=== PATIENT | male | born 1965 | race American Indian/Alaskan Native ===

== ENCOUNTER 2016-12-11 09:46 | Outpatient (CLI) | payer OTHER ==
--- NOTE | 2016-12-11 11:05 | XRay Report ---
CHEST 2 VIEWS: HISTORY: Positive PPD. FINDINGS: Normal cardiomediastinal silhouette. Trachea is midline. No consolidation, pneumothorax or pleural effusion. IMPRESSION: No acute cardiopulmonary findings.
== END 2016-12-11 09:47 | disposition home or self-care (01) ==
LOC: XRAY 09:46
PROVIDERS: ATTEND Internal Medicine
DX: R76.11 Nonspecific reaction to tuberculin skin test without active tuberculosis (principal); R51 Headache
CPT/HCPCS: 71020

== ENCOUNTER 2018-12-13 13:03 | Day surgery (SDC) | payer OTHER ==
--- NOTE | 2018-12-13 13:56 | Anesthesia Consultation ---
Anesthesia Consult and Med Hx Date of service: 12/13/18 - Airway Anesthetic Teeth Evaluation: Good ROM Head & Neck: Adequate Mental/Hyoid Distance: Adequate Mallampati Class: Class II Intubation Access Assessment: Probably Good - Pulmonary Exam CTA: Yes - Cardiac Exam Cardiac Exam: RRR - Pre-Operative Health Status ASA Pre-Surgery Classification: ASA1, ASA2 Proposed Anesthetic Plan: MAC - Pulmonary Hx Smoking: No Hx Respiratory Symptoms: No - Cardiovascular System Hx Hypertension: No Hx Coronary Artery Disease: No - Central Nervous System Hx Neuromuscular Disorder: No - Gastrointestinal Hx Ulcer: Yes - Endocrine Hx Renal Disease: No Hx End Stage Renal Disease: No Hx Liver Disease: No - Hematic Hx Anemia: No Hx Sickle Cell Disease: No - Other Systems Hx Alcohol Use: No - Additional Comments Anesthesia Medical History Comments: No GAC, No FHAC
[2018-12-13] MEDS ORDERED: NACL 0.9% 1000 ML 1,000 ML IV SCH (14:00)
--- NOTE | 2018-12-13 14:52 | Anesthesia Day of Surgery ---
Anesthesia Day of Surgery - Day of Surgery Patient Examined: Yes Patient H&P Reviewed: Yes Patient is NPO: Yes
[2018-12-13] MEDS ORDERED: DIPRIVAN 10 MG/ML IV ONE ×2 (15:42)
[2018-12-13] MEDS ORDERED: WATER FOR IRRIG STERILE IR ONE (15:44)
[2018-12-13] MEDS ORDERED: WATER FOR IRRIG STERILE ONE (16:02)
--- NOTE | 2018-12-13 16:33 | Operative Report ---
Operative Report Operative Report: Date of procedure: 12/13/2018 Procedure: Colonoscopy with snare polypectomy. Attending physician: Bandar Wood MD Seasoning Mixer: Bandar Wood MD Indication: Patient is a 53-year-old male who presents for colonoscopy for colorectal cancer screening. He has a history of rectal bleeding and rectal pain. A colonoscopy serves to evaluate patients symptoms so that treatment may be directed based on the findings. Consent: Informed consent was obtained after advising the patient and family regarding nature of this procedure, its indications, potential benefits as well as possible complications including but not limited to bleeding perforation and adverse reaction to medication, infection as well as other cardiopulmonary complications. An informed written and verbal consent was then obtained after due opportunity was provided for questions and answers. Monitoring: Patient was monitored continuously with pulse oximetry and electrocardiographic recordings as well as blood pressure recordings. Vital signs remained stable throughout this procedure with no untoward events. Preoperative assessment: Patient was assessed immediately prior to this procedure for capacity to tolerate monitored anesthesia care and moderate sedation as well as general anesthesia. Patient's ASA classification is 2, Mallampati class is 2, Hyomental distance is 3. Instrument: [employer] videocolonoscope. Medications: Propofol given intravenously in divided doses. For details please refer to anesthesia records. Description of procedure: Patient was placed in the left lateral decubitus position after achieving sedation, a digital rectal examination was performed following which the colonoscope was introduced into the anal verge and advanced to the cecum which was identified by the cecal valve, the appendiceal orifice, as well as by the cecal strap and direct transillumination. The colonoscope was subsequently withdrawn with careful inspection of all mucosal surfaces. Patient tolerated this procedure well and was subsequently taken to the recovery room. The following findings were noted. Findings: The preparation was fair. The colon was moderately tortuous. The cecum was normal. The ascending colon was normal. The transverse colon was normal. The proximal descending colon was normal. In the mid descending colon, patient had a pedunculated 1.5 cm polyp. This was removed by snare electrocautery and retrieved. A Hemoclip was placed over the polyp base. The sigmoid colon was normal. The rectum was normal however on the retroflex examination at the anal verge patient had prominent internal hemorrhoids. This was friable and bled easily on contact.. Patient tolerated the procedure well with no untoward events. Impression: Descending colon polyp status post snare polypectomy Prominent friable Internal hemorrhoids Plan: Follow-up pathology report Daily sitz baths. High-fiber diet. Anusol HC suppositories per rectum every night as needed. Patient to use stool softeners as needed. MiraLAX 17 g in 8 ounce glass of water as needed Patient is scheduled for further outpatient follow-up. Patient would benefit from hemorrhoidal band ligation.
--- NOTE | 2018-12-13 16:34 | Discharge Summary ---
Short Stay Discharge Plan Weight Bearing Status: Weight Bear as Tolerated Diet: regular Additional Instructions: Post Sedation D/C Instructions When you return home you may resume your regular diet unless otherwise directed. -Go directly home from the hospital and rest quietly. You may resume normal activities tomorrow. -Do NOT drive, return to work, operate any machinery or make any important personal or business decisions today. -Do NOT drink any alcohol or take nerve or sleeping drugs. They add to the effects of the medicine still present in your body. NO NSAIDS OR ASPIRIN 2-[address] HENRIQUEZ'S OFFICE 1-2 WKS FOR BIOPSY REPORT Follow up with: SHELDON PADRON [Primary Care Provider] - 7 Days
[2018-12-13 16:52] VITALS: BP 99/68
--- NOTE | 2018-12-13 16:52 | Post Anesthesia Evaluation ---
- Post Anesthesia Evaluation Patient Participated: Yes Airway Patent: Yes Stable Respiratory Function: Yes Temp > 96.8F: Yes Pain Manageable: Yes Adequeate Hydration: Yes Anesthesia Complications: No
== END 2018-12-13 13:04 | disposition home or self-care (01) ==
LOC: GIO 13:03
PROVIDERS: ATTEND Internal Medicine Gastroenterology
DX: D12.4 Benign neoplasm of descending colon (principal); K63.5 Polyp of colon; K64.8 Other hemorrhoids; K21.9 Gastro-esophageal reflux disease without esophagitis; Z79.899 Other long term (current) drug therapy; Z98.890 Other specified postprocedural states
CPT/HCPCS: 45385; 88305; J2704; J7030

== ENCOUNTER 2018-12-27 09:25 | Day surgery (SDC) | payer OTHER ==
[2018-12-27] MEDS ORDERED: NACL 0.9% 1000 ML 1,000 ML IV SCH (10:00)
[2018-12-27] MEDS ORDERED: DIPRIVAN 10 MG/ML IV ONE ×2 (10:24)
--- NOTE | 2018-12-27 10:38 | Anesthesia Consultation ---
Anesthesia Consult and Med Hx Date of service: 12/27/18 - Airway Anesthetic Teeth Evaluation: Good ROM Head & Neck: Adequate Mental/Hyoid Distance: Adequate Mallampati Class: Class I Intubation Access Assessment: Good - Pulmonary Exam CTA: Yes - Cardiac Exam Cardiac Exam: RRR - Pre-Operative Health Status ASA Pre-Surgery Classification: ASA1, ASA2 Proposed Anesthetic Plan: MAC - Pulmonary Hx Smoking: No Hx Respiratory Symptoms: No - Cardiovascular System Hx Hypertension: No Hx Coronary Artery Disease: No - Central Nervous System Hx Neuromuscular Disorder: No - Gastrointestinal Hx Ulcer: Yes Hx Gastroesophageal Reflux Disease: Yes - Endocrine Hx Renal Disease: No Hx End Stage Renal Disease: No Hx Liver Disease: No - Hematic Hx Anemia: No Hx Sickle Cell Disease: No - Other Systems Hx Alcohol Use: No Hx Obesity: No - Additional Comments Anesthesia Medical History Comments: No GAC, No FHAC
--- NOTE | 2018-12-27 12:40 | Operative Report ---
Operative Report Operative Report: Date: 12/27/2018 Operative Report: Date of procedure: 12/27/2018 Procedure: Esophagogastroduodenoscopy with multiple mucosal biopsies. Attending physician: Bandar Wood MD Sales Marketing Manager: Bandar Wood MD Indication: Patient is a 53 -year-old male who presented with a history of recurrent epigastric pain, heartburn and indigestion and early satiety. An upper endoscopy is done to assess patient, so that treatment may be directed based on the findings. Consent: Informed consent was obtained after advising the patient and family regarding nature of this procedure, its indications, potential benefits as well as possible complications including but not limited to bleeding perforation and adverse reaction to medication, infection as well as other cardiopulmonary complications. An informed written and verbal consent was then obtained after due opportunity was provided for questions and answers. Monitoring: Patient was monitored continuously with pulse oximetry and electrocardiographic recordings as well as blood pressure recordings. Vital signs remained stable throughout this procedure with no untoward events. Preoperative assessment: Patient was assessed immediately prior to this procedure for capacity to tolerate monitored anesthesia care and moderate sedation as well as general anesthesia. Patient's ASA classification is 2, Mallampati class is 2, Hyomental distance is 3. Instrument: [employer] video endoscope Medications: Propofol given intravenously in divided doses. For details please refer to anesthesia records. Description of procedure: Patient was placed in the left lateral decubitus position after achieving sedation, the endoscope was introduced into the esophagus under direct vision. It was then advanced beyond the esophagus into the stomach and then beyond the stomach into the duodenum and to the second portion of the duodenum. It was subsequently withdrawn with careful inspection of all mucosal surfaces with the following findings. Findings: Patient has an irregular Z line at 42 cm. There was erythema in the gastric antrum. Biopsies of the antrum were obtained for histopathology. Patient had an ulcer 1 x 0.5 cm with surrounding multiple erosions and irregular edges seen in the duodenal bulb. Biopsies of the duodenal bulb were obtained for histopathology The rest duodenum was normal to second portion. Impression: Irregular Z line. Gastric antral erythema Duodenal bulb ulcer. Duodenitis. Plan: Continue treatment with proton pump inhibitors. Follow pathology report. Direct additional treatment based on the pathology report. Patient will be observed clinically. Additional recommendations will be made follow-up.
--- NOTE | 2018-12-27 12:40 | Discharge Summary ---
Short Stay Discharge Plan Activity: advance as tolerated Weight Bearing Status: Weight Bear as Tolerated Diet: regular Follow up with: SHELDON PADRON [Primary Care Provider] - 7 Days
[2018-12-27 13:07] VITALS: BP 113/78
--- NOTE | 2018-12-27 16:42 | History and Physical Report ---
History of Present Illness Date of examination: 12/27/18 Date of admission: 12/27/2018 Chief complaint: Epigastric pain, early satiety, indigestion and heartburn anorexia History of present illness: Patient ia s 53 year old male who presents for an upper endoascopy because of complaints of epigastric pain, early satiety, indigestion and heartburn anorexia Medications and Allergies Allergies Allergy/AdvReac Type Severity Reaction Status Date / Time LOBSTER Allergy Mild Vomiting Uncoded 12/27/18 09:48 Home Medications Medication Instructions Recorded Confirmed Last Taken Type Omeprazole 20 mg PO PRN PRN 12/13/18 12/27/18 12/21/18 History Active Meds: Active Medications Sodium Chloride (Nacl 0.9% 1000 Ml) 1,000 mls @ 50 mls/hr IV DIRECT RANAD Last Admin: 12/27/18 10:10 Dose: 50 mls/hr Documented by: Review of Systems All systems: negative Exam - Constitutional Vitals: Temp Pulse Resp BP Pulse Ox 97.8 F 80 15 113/78 99 12/27/18 12:30 12/27/18 13:06 12/27/18 13:12 12/27/18 13:06 12/27/18 13:12 General appearance: Present: no acute distress, well-nourished - EENT Eyes: Present: PERRL ENT: hearing intact, clear oral mucosa - Neck Neck: Present: supple, normal ROM - Respiratory Respiratory effort: normal Respiratory: bilateral: CTA - Cardiovascular Heart Sounds: Present: S1 & S2. Absent: rub, click - Extremities Extremities: pulses symmetrical, No edema Peripheral Pulses: within normal limits - Abdominal General gastrointestinal: Present: soft, non-tender, non-distended, normal bowel sounds Male genitourinary: Present: normal - Integumentary Integumentary: Present: clear, warm, dry - Musculoskeletal Musculoskeletal: gait normal, strength equal bilaterally - Psychiatric Psychiatric: appropriate mood/affect, intact judgment & insight - Neurologic Neurologic: CNII-XII intact, moves all extremities Assessment and Plan Epigastric pain, early satiety, indigestion and heartburn anorexia Plan Esophagogastroduodenoscopy
== END 2018-12-27 09:26 | disposition home or self-care (01) ==
LOC: GIO 09:25
PROVIDERS: ATTEND Internal Medicine Gastroenterology
DX: K29.50 Unspecified chronic gastritis without bleeding (principal); K21.9 Gastro-esophageal reflux disease without esophagitis; K29.80 Duodenitis without bleeding; K26.9 Duodenal ulcer, unspecified as acute or chronic, without hemorrhage or perforation; B96.81 Helicobacter pylori [H. pylori] as the cause of diseases classified elsewhere; Z88.8 Allergy status to other drugs, medicaments and biological substances; Z98.890 Other specified postprocedural states
CPT/HCPCS: 43239; 88305; 88342; J2704; J7030

== ENCOUNTER 2019-02-21 10:39 | Day surgery (SDC) | payer OTHER ==
--- NOTE | 2019-02-21 11:15 | Anesthesia Day of Surgery ---
Anesthesia Day of Surgery - Day of Surgery Patient Examined: Yes Patient H&P Reviewed: Yes Patient is NPO: Yes Beta Blockers: No
--- NOTE | 2019-02-21 11:16 | Anesthesia Consultation ---
Anesthesia Consult and Med Hx Date of service: 02/21/19 - Airway Anesthetic Teeth Evaluation: Good ROM Head & Neck: Adequate Mental/Hyoid Distance: Adequate Mallampati Class: Class II Intubation Access Assessment: Probably Good - Pulmonary Exam CTA: Yes - Cardiac Exam Cardiac Exam: No Murmur - Pre-Operative Health Status ASA Pre-Surgery Classification: ASA2 Proposed Anesthetic Plan: MAC - Pulmonary Hx Smoking: No Hx Asthma: No Hx Respiratory Symptoms: No SOB: No COPD: No Home Oxygen Therapy: No Hx Pneumonia: No Hx Sleep Apnea: No - Cardiovascular System Hx Hypertension: No Hx Coronary Artery Disease: No Hx Heart Attack/AMI: No Hx Angina: No Hx Percutaneous Transluminal Coronary Angioplasty (PTCA): No Hx Cardia Arrhythmia: No Hx Pacemaker: No Hx Internal Defibrillator: No Hx Valvular Heart Disease: No Hx Heart Murmur: No Hx Peripheral Vascular Disease: No - Central Nervous System Hx Neuromuscular Disorder: No Hx Seizures: No CVA: No Hx Psychiatric Problems: No - Gastrointestinal Hx Ulcer: Yes (DUODENAL ULCER) Hx Gastroesophageal Reflux Disease: Yes - Endocrine Hx Renal Disease: No Hx End Stage Renal Disease: No Hx Cirrhosis: No Hx Liver Disease: No Hx Insulin Dependent Diabetes: No Hx Non-Insulin Dependent Diabetes: No Hx Thyroid Disease: No Hx Hypothyroidism: No Hx Hyperthyroidism: No - Hematic Hx Anemia: No Hx Sickle Cell Disease: No - Other Systems Hx Alcohol Use: No Hx Obesity: No
[2019-02-21] MEDS ORDERED: WATER FOR IRRIG STERILE IR ONE ×2 (11:24→11:42)
[2019-02-21] MEDS ORDERED: WATER FOR IRRIG STERILE ONE (11:42)
[2019-02-21] MEDS ORDERED: NACL 0.9% 1000 ML 1,000 ML IV SCH (12:00)
[2019-02-21 12:20] VITALS: BP 100/72
--- NOTE | 2019-02-21 13:30 | Discharge Summary ---
Short Stay Discharge Plan Activity: advance as tolerated Weight Bearing Status: Weight Bear as Tolerated Diet: regular Additional Instructions: Post Sedation D/C Instructions When you return home you may resume your regular diet unless otherwise directed. -Go directly home from the hospital and rest quietly. You may resume normal activities tomorrow. -Do NOT drive, return to work, operate any machinery or make any important personal or business decisions today. -Do NOT drink any alcohol or take nerve or sleeping drugs. They add to the effects of the medicine still present in your body. No Aspirin or Aspirin products for 4 days. Follow up with: SHELDON PADRON MD [Primary Care Provider] - 7 Days
--- NOTE | 2019-02-21 13:30 | Operative Report ---
Operative Report Operative Report: Procedure: Esophagogastroduodenoscopy with multiple mucosal biopsies. Attending physician: Bandar Wood MD Supervisor [employer]: Bandar Wood MD Indication: Patient is a 53 -year-old male who presented with a history of persistent epigastric pain, and also history of peptic ulcer disease with hist ory of duodenal ulcer disease that looked suspicious on his prior endoscopy. An upper endoscopy is done to assess patient, so that treatment may be directed based on the findings. Consent: Informed consent was obtained after advising the patient and family regarding nature of this procedure, its indications, potential benefits as well as possible complications including but not limited to bleeding perforation and adverse reaction to medication, infection as well as other cardiopulmonary complications. An informed written and verbal consent was then obtained after due opportunity was provided for questions and answers. Monitoring: Patient was monitored continuously with pulse oximetry and electrocardiographic recordings as well as blood pressure recordings. Vital signs remained stable throughout this procedure with no untoward events. Preoperative assessment: Patient was assessed immediately prior to this procedure for capacity to tolerate monitored anesthesia care and moderate s edation as well as general anesthesia. Patient's ASA classification is 3, Mallampati class is 2, Hyomental distance is 3. Instrument: [employer] video endoscope Medications: Performed given intravenously in divided doses. For details please refer to anesthesia records. Description of procedure: Patient was placed in the left lateral decubitus position after achieving sedation, the endoscope was introduced into the esophagus under direct vision. It was then advanced beyond the esophagus into the stomach and then beyond the stomach into the duodenum and to the second portion of the duodenum. It was subsequently withdrawn with careful inspection of all mucosal surfaces with the following findings. Findings: Patient has an irregular Z line at 38 cm. There were erosions in the gastric antrum and body with surrounding erythema and edema. Biopsies of the antrum were obtained for histopathology. The pyloric channel was patulous. There was a healing duodenal bulb ulcer seen. There were multiple erosions seen in the duodenal bulb. There was a prominent ampulla seen. The rest of the examination to the second portion was normal.. n. Impression: Irregular Z line. Gastric antral erythema with erosions Healing duodenal bulb ulcer Plan: Continue treatment with proton pump inhibitors. Follow pathology report. Direct additional treatment based on the pathology report.
== END 2019-02-21 10:40 | disposition home or self-care (01) ==
LOC: GIO 10:39
PROVIDERS: ATTEND Internal Medicine Gastroenterology
DX: K29.50 Unspecified chronic gastritis without bleeding (principal); K26.9 Duodenal ulcer, unspecified as acute or chronic, without hemorrhage or perforation; K29.80 Duodenitis without bleeding; K21.9 Gastro-esophageal reflux disease without esophagitis; Z98.890 Other specified postprocedural states; Z79.899 Other long term (current) drug therapy; Z88.8 Allergy status to other drugs, medicaments and biological substances
CPT/HCPCS: 43239; 88305; 88342; J7030